=== PATIENT | male | born 1985 ===

== ENCOUNTER 2018-12-17 19:05 | Emergency (ER) | payer SELFPAY ==
[~2018-12-17] VITALS: Ht 175.3 cm; Wt 81.7 kg
[2018-12-17] MEDS ORDERED: Amoxicillin500 MG PO (19:19)
== END 2018-12-17 19:26 | disposition home or self-care (01) ==
LOC: ER 19:05
DX: K04.7 Periapical abscess without sinus (principal); K02.9 Dental caries, unspecified; F17.200 Nicotine dependence, unspecified, uncomplicated
CPT/HCPCS: J1885